=== PATIENT | male | born 1980 | race Caucasian/White ===

== ENCOUNTER 2021-03-21 21:20 | Emergency (ER) | payer OTHER ==
[~2021-03-21 21:20] MED LIST: IBUPROFEN600 MG PO; NAPROSYN500 MG PO; PENVEE K 500 M500 MG PO
== END 2021-03-22 01:29 | disposition home or self-care (01) ==
LOC: ER1 21:20
DX: R51.9 Headache, unspecified (principal); F17.200 Nicotine dependence, unspecified, uncomplicated
CPT/HCPCS: 96374; 96375; 99283; J1885; J2765